=== PATIENT | male | born 1955 | race Caucasian/White ===

== ENCOUNTER 2016-10-18 04:36 | Emergency (ER) | payer OTHER ==
[~2016-10-18] VITALS: Ht 177.8 cm; Wt 102.0 kg
[~2016-10-18 04:36] MED LIST: 1-ME1LIQ PO; GLUCTAB PO
[2016-10-18 04:37] VITALS: BP 175/116; PULSE 90; RESP 16; TEMP 98.5; O2SAT 98
[2016-10-18] MEDS ORDERED: AMLO10TA2 PO (05:07)
[2016-10-18] MEDS ORDERED: OXYMETAZOLINE HCL 0.05% 15 ML NASAL SPRAY NASAL ONE (05:15)
--- NOTE | 2016-10-18 05:17 | PD ---
HPI . Nosebleed Chief Complaint: Nosebleed Time Seen by Provider: 05:12 Travel History International Travel<30 days: No Contact w/Intl Traveler<30days: No Traveled to known affect area: No History of Present Illness HPI Patient presents with a nosebleed that started about 3:15 AM. He states that he 's been treating it with pressure and with tissue in his nose. 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) High Cholesterol: Yes Chest Pain: No Diabetes: Yes (diet controlled) Patient Takes Glucophage: No Diminished Hearing: No Gastrointestinal Disorders: No Glaucoma: No Hepatitis: No Hiatal Hernia: No Hypertension: Yes Integumentary: No Thyroid Disease: No Past Surgical History Tonsillectomy: Yes Other Surgery: Yes (TUMOR FROM RIGHT LEG REMOVED, BILAT INGUINAL HERNIA REPAIR) Social History Alcohol Use: No Tobacco Use: No (never) Substance Use: No Allergies-Medications (Allergen,Severity, Reaction): Coded Allergies: No Known Allergies (Unverified , 10/18/16) Reported Meds & Prescriptions Reported Meds & Active Scripts Active Reported Amlodipine (Amlodipine Besylate) 10 Mg Tab 10 Mg PO DAILY Review of Systems Except as stated in HPI: all other systems reviewed are Neg General / Constitutional: No: Fever, Chills HENT: Positive: Nosebleed Physical Exam Narrative GENERAL: Patient is awake and alert. He is holding gauze on his nose. SKIN: Warm and dry. HEAD: Atraumatic. Normocephalic. EYES: Pupils equal and round. ENT: No nasal bleeding or discharge. Mucous membranes pink and moist. He is bleeding from the left nare but the bleeding is not brisk. NECK: Trachea midline. CARDIOVASCULAR: Regular rate and rhythm. RESPIRATORY: No accessory muscle use. MUSCULOSKELETAL: No obvious deformities. No edema. NEUROLOGICAL: Awake and alert. No obvious cranial nerve deficits. Motor grossly within normal limits. Normal speech. PSYCHIATRIC: Appropriate mood and affect; insight and judgment normal. Data Data Last Documented VS Vital Signs Date Time Temp Pulse Resp B/P Pulse Ox O2 Delivery O2 Flow Rate FiO2 10/18/16 04:37 98.5 90 16 175/116 98 Orders Oxymetazoline 0.05% Ashkan Hamlin (Afrin 0.0 (2/19/17 05:15) [facility] Medical Decision Making Medical Screen Exam Complete: Yes Emergency Medical Condition: Yes Differential Diagnosis Differential diagnosis includes but is not limited to epistaxis due to an upper respiratory infection, coagulopathy, local trauma, nasal fracture Narrative Course Patient presents with epistaxis. The epistaxis has been controlled with Afrin. Diagnosis Primary Impression: Epistaxis Patient Instructions: Epistaxis (DC), General Instructions Disposition: 01 DISCHARGE HOME Condition: Stable Francesca Sanches MD Oct 18, 2016 05:17
== END 2016-10-18 06:27 | disposition home or self-care (01) ==
LOC: NEPC 04:36
DX: R04.0 Epistaxis (principal); E78.00 Pure hypercholesterolemia, unspecified; E11.9 Type 2 diabetes mellitus without complications; I10 Essential (primary) hypertension
CPT/HCPCS: 99283

== ENCOUNTER 2018-07-28 10:24 | Inpatient (IN) ==
[2018-07-28] MEDS ORDERED: Heparin 10,000 UNITS/10 ML Vial (for IV use) IV.PUSH STA (10:56)
[2018-07-28] MEDS ORDERED: Sod Chloride 0.9% Inj 1,000 ML IV.SIG SCH (11:00)
--- NOTE | 2018-07-28 11:02 | ED ---
HPI General Chief complaint: Chest Pain Stated complaint: Chest Pain Complaint Time Seen by Provider: 07/28/18 10:42 Source: patient Mode of arrival: ambulatory Limitations: no limitations History of Present Illness HPI narrative: 62yo M with PMH of ablation for irregular heart rate s/p ablation in 2013 here with c/o chest pain since 9am. Pain is across his chest, pressure like, and constant. Associated with nausea, diaphoresis. + Generalized weakness. Denies any sob, vomiting, abdominal pain, focal weakness or numbness. Denies taking any medications. 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 Does not have a primary care. Related Data Home Medications Medication Instructions Recorded Confirmed omega-3 fatty acids [Fish Oil 1,000 mg PO DAILY 07/28/18 07/28/18 Concentrate] Allergies Allergy/AdvReac Type Severity Reaction Status Date / Time No Known Allergies Allergy Verified 07/28/18 10:36 Review of Systems ROS: all other systems reviewed are negative [facility] Surgical History Surgical History H/O prior ablation treatment (Acute) Hx of hernia repair (Acute) Social History Social History Substance History: No History of Abuse Second Hand Smoke Exposure: No Smoking Status: Never smoker How Often Do You Have a Drink Containing Alcohol: Monthly or less Recent Travel in [facility] within the Last 8 Weeks: No Recent Out of Country Travel within the Last 8 Weeks: No Immunization History Tetanus Immunization: >5 Years Exam Narrative Exam Narrative: GENERAL: 62yo M in moderate distress. SKIN: Focused skin assessment warm/dry. HEAD: Atraumatic. Normocephalic. EYES: Pupils equal and round. No scleral icterus. No injection or drainage. ENT: No nasal bleeding or discharge. Mucous membranes pink and moist. NECK: Trachea midline. No JVD. CARDIOVASCULAR: Regular rate and rhythm. No murmur appreciated. RESPIRATORY: No accessory muscle use. Clear to auscultation. Breath sounds equal bilaterally. GASTROINTESTINAL: Abdomen soft, non-tender, nondistended. MUSCULOSKELETAL: No obvious deformities. No clubbing. No cyanosis. No edema. NEUROLOGICAL: Awake and alert. No obvious cranial nerve deficits. Motor grossly within normal limits. Normal speech. PSYCHIATRIC: Appropriate mood and affect; insight and judgment normal. Course Initial Documented Vital Signs Temperature 98.1 F 07/28/18 10:32 Pulse Rate 95 H 07/28/18 10:32 Respiratory Rate 22 11/29/18 10:32 Blood Pressure 159/86 H 07/28/18 10:32 Pulse Oximetry 93 L 07/28/18 10:32 Last Documented Vital Signs Temperature 98.9 F 07/29/18 03:00 Pulse Rate 80 07/29/18 07:00 Respiratory Rate 18 07/29/18 03:00 Blood Pressure 133/81 07/29/18 03:00 Pulse Oximetry 94 L 07/29/18 03:00 Medical Decision Making MDM Narrative Medical decision making narrative: 62yo M with chest pain since 9am associated with diaphoresis and nausea. EKG showed anterior STEMI with ST elevation in V2- V4. Pt has [facility] so discussed with Dr. 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 Aspirin, sublingual nitroglycerin and heparin bolus ordered. Medical Screen Exam Complete: Yes Emergency Medical Condition: Yes Differential Diagnosis Differential Diagnosis: STEMI Lab Data Result diagrams: 07/29/18 04:53 07/29/18 04:53 Lab Results 07/28/18 07/28/18 07/28/18 Range/Units 10:50 10:50 10:50 WBC 10.8 (4.0-11.0) th/mm3 RBC 5.27 (4.50-5.90) mil/mm3 Hgb 17.5 H (13.0-17.0) gm/dL POC Hgb (Calc) 17.3 H (13.0-17.0) g/dL Hct 50.6 (39.0-51.0) % POC Hct 51.0 (39-51.0) % MCV 96.0 (80.0-100.0) fL MCH 33.3 (27.0-34.0) pg MCHC 34.7 (32.0-36.0) % RDW 13.2 (11.6-17.2) % Plt Count 270 (150-450) th/mm3 MPV 8.6 (7.0-11.0) fL Neut % (Auto) 75.8 H (16.0-70.0) % Lymph % (Auto) 16.6 (9.0-44.0) % Stanley % (Auto) 6.0 (0.0-8.0) % Eos % (Auto) 1.3 (0.0-4.0) % Baso % (Auto) 0.3 (0.0-2.0) % Neut # (Auto) 8.2 H (1.8-7.7) th/mm3 Lymph # (Auto) 1.8 (1.0-4.8) th/mm3 Stanley # (Auto) 0.6 (0.0-0.9) th/mm3 Eos # (Auto) 0.1 (0.0-0.4) th/mm3 Baso # (Auto) 0.0 (0.0-0.2) th/mm3 WBC Differential . Differential Comment Auto diff final PT 10.6 (9.8-11.6) sec INR 1.0 Ratio APTT 28.6 (23.4-31.7) sec POC Sodium 140 (137-144) mmol/L Sodium (136-145) meq/L POC Potassium 3.6 (3.6-5.0) mmol/L Potassium (3.5-5.1) meq/L POC Chloride 102 (102-111) mmol/L Chloride (98-107) meq/L Carbon Dioxide (21.0-32.0) meq/L Anion Gap (5-15) meq/L POC BUN 16 (5-21) mg/dL BUN (7-18) mg/dL Creatinine (0.60-1.30) mg/dL POC Creatinine 0.9 (0.6-1.3) mg/dL Estimated GFR (>89) mL/min POC Glucose 209 H (68-110) mg/dL Random Glucose (74-106) mg/dL Calcium 8.5 (8.5-10.1) mg/dL Magnesium 2.1 (1.5-2.5) mg/dL Total Creatine Kinase 76 (39-308) U/L CK-MB (CK-2) (0.5-3.6) ng/mL CK-MB (CK-2) % (0.0-4.0) % Troponin I 0.06 H (0.02-0.05) ng/mL B-Natriuretic Peptide (0-100) pg/mL Triglycerides (42-150) mg/dL Cholesterol (120-200) mg/dL LDL Cholesterol, Calc (0-99) mg/dL HDL Cholesterol (40.0-60.0) mg/dL Cholesterol/HDL Ratio Ratio 07/28/18 07/29/18 07/29/18 Range/Units 10:50 04:53 04:53 WBC 15.7 H (4.0-11.0) th/mm3 RBC 5.42 (4.50-5.90) mil/mm3 Hgb 17.9 H (13.0-17.0) gm/dL POC Hgb (Calc) (13.0-17.0) g/dL Hct 50.5 (39.0-51.0) % POC Hct (39-51.0) % MCV 93.2 (80.0-100.0) fL MCH 33.0 (27.0-34.0) pg MCHC 35.4 (32.0-36.0) % RDW 13.4 (11.6-17.2) % Plt Count 251 (150-450) th/mm3 MPV 8.7 (7.0-11.0) fL Neut % (Auto) 84.8 H (16.0-70.0) % Lymph % (Auto) 7.1 L (9.0-44.0) % Stanley % (Auto) 7.9 (0.0-8.0) % Eos % (Auto) 0.1 (0.0-4.0) % Baso % (Auto) 0.1 (0.0-2.0) % Neut # (Auto) 13.3 H (1.8-7.7) th/mm3 Lymph # (Auto) 1.1 (1.0-4.8) th/mm3 Stanley # (Auto) 1.2 H (0.0-0.9) th/mm3 Eos # (Auto) 0.0 (0.0-0.4) th/mm3 Baso # (Auto) 0.0 (0.0-0.2) th/mm3 WBC Differential . Differential Comment Auto diff final PT (9.8-11.6) sec INR Ratio APTT (23.4-31.7) sec POC Sodium (137-144) mmol/L Sodium 137 (136-145) meq/L POC Potassium (3.6-5.0) mmol/L Potassium 4.0 (3.5-5.1) meq/L POC Chloride (102-111) mmol/L Chloride 104 (98-107) meq/L Carbon Dioxide 23.9 (21.0-32.0) meq/L Anion Gap 9 (5-15) meq/L POC BUN (5-21) mg/dL BUN 16 (7-18) mg/dL Creatinine 0.99 (0.60-1.30) mg/dL POC Creatinine (0.6-1.3) mg/dL Estimated GFR 77 L (>89) mL/min POC Glucose (68-110) mg/dL Random Glucose 132 H (74-106) mg/dL Calcium 8.4 L (8.5-10.1) mg/dL Magnesium (1.5-2.5) mg/dL Total Creatine Kinase 3102 H (39-308) U/L CK-MB (CK-2) 240.3 H (0.5-3.6) ng/mL CK-MB (CK-2) % 7.7 H* (0.0-4.0) % Troponin I (0.02-0.05) ng/mL B-Natriuretic Peptide 15 (0-100) pg/mL Triglycerides 144 (42-150) mg/dL Cholesterol 214 H (120-200) mg/dL LDL Cholesterol, Calc 141 H (0-99) mg/dL HDL Cholesterol 44.1 (40.0-60.0) mg/dL Cholesterol/HDL Ratio 4.85 Ratio Imaging Data Radiologist's impression: Chest X-Ray 07/28/18 10:57 CONCLUSION: No acute disease ECG Data EKG Prior to Arrival: No Attestation: I personally reviewed and interpreted this ECG as follows: Prior ECG tracings: not available for review Interpretation: ST segment elevation in V2-V4. RBBB. No prior to compare. Discharge Plan Discharge Disposition Patient Disposition: 30 Still Patient Discharge Details Diagnosis: ST elevation (STEMI) myocardial infarction Physicians Team ED Provider: June Grimes Primary Care Provider: Primary Care Amalia Galvin Attending Provider: Joseph Scott Other Providers: Bebeto Lopez Status ED Status: Left Department Discharge Information Discharge Date/Time: 07/28/18 11:05
--- NOTE | 2018-07-28 11:15 | XR ---
EXAM DATE: 07/28/2018 11:12 AM EST AGE/SEX: 62 years / Male INDICATIONS: Chest pains with pressure. CLINICAL DATA: This is the patient's initial encounter. Patient reports that signs and symptoms have been present for 1 day and indicates a pain score of 10/10. MEDICAL/SURGICAL HISTORY: None. None. COMPARISON: [facility], CHEST SINGLE AP, 03/07/2014. . FINDINGS: A single AP view of the chest demonstrates the lungs to be symmetrically aerated without evidence of mass, infiltrate or effusion. The cardiomediastinal contours are unremarkable. Osseous structures a re intact. CONCLUSION: No acute disease Electronically signed by: Marky Han MD 07/28/2018 11:13 AM EST
[2018-07-28] MEDS ORDERED: Heparin/NS PF Inj 1,000 ML ONE (11:16)
[2018-07-28] MEDS ORDERED: Lidocaine PF 1% Inj 30 ML Vial ONE ×2 (11:16→11:26)
[2018-07-28] MEDS ORDERED: fentaNYL Citrate Inj 100 MCG/2 ML Ampul ONE (11:17)
[2018-07-28] MEDS ORDERED: Heparin 10,000 UNITS/10 ML Vial (for IV use) ONE (11:17)
[2018-07-28 11:18] LABS: Baso % (Auto) 0.3 % (0.0-2.0); Eos # (Auto) 0.1 th/mm3 (0.0-0.4); Eos % (Auto) 1.3 % (0.0-4.0); Hematocrit 50.6 % (39.0-51.0); Hemoglobin 17.5 gm/dL (13.0-17.0); Lymph # (Auto) 1.8 th/mm3 (1.0-4.8); Lymph % (Auto) 16.6 % (9.0-44.0); Mean Corpuscular HGB Conc 34.7 % (32.0-36.0); Mean Corpuscular Hemoglobin 33.3 pg (27.0-34.0); Mean Platelet Volume 8.6 fL (7.0-11.0); Mono # (Auto) 0.6 th/mm3 (0.0-0.9); Neut # (Auto) 8.2 th/mm3 (1.8-7.7); Neut % (Auto) 75.8 % (16.0-70.0); Platelet Count 270 th/mm3 (150-450); Red Blood Count 5.27 mil/mm3 (4.50-5.90); Red Cell Distribution Width 13.2 % (11.6-17.2); White Blood Count 10.8 th/mm3 (4.0-11.0)
[2018-07-28] MEDS ORDERED: Cangrelor Inj 50,000 MCG Vial ONE (11:22)
[2018-07-28] MEDS ORDERED: Lidocaine 2% 100 MG/5 ML Syringe ONE (11:25)
[2018-07-28] MEDS ORDERED: Iohexol 350 MG/ML 100 ML Vial (for Cath Lab) IVCONTRAST ONE (11:26)
[2018-07-28] MEDS ORDERED: Iohexol 350 MG/ML 50 ML Vial (for Cath Lab) IVCONTRAST ONE (11:26)
[2018-07-28 11:28] LABS: Activated Partial Thrombo Time 28.6 sec (23.4-31.7); Prothrombin Time 10.6 sec (9.8-11.6)
[2018-07-28 11:30] LABS: Calcium 8.5 mg/dL (8.5-10.1)
[2018-07-28 11:36] LABS: Magnesium 2.1 mg/dL (1.5-2.5)
[2018-07-28 11:39] LABS: Troponin I 0.06 ng/mL (0.02-0.05)
[2018-07-28] MEDS ORDERED: Acetaminophen 325 MG Tablet PO PRN (12:15)
[2018-07-28] MEDS ORDERED: oxyCODONE/Acetaminophen 10/325 Tablet PO PRN (12:15)
[2018-07-28] MEDS ORDERED: Lidocaine 2% Jelly 5 ML Syringe TOPICAL PRN (12:15)
[2018-07-28] MEDS ORDERED: Misc Info for Pharmacy OTHER STA (12:15)
[2018-07-28] MEDS ORDERED: Atropine Inj 1 MG/ML Vial IV.PUSH PRN (12:15)
[2018-07-28] MEDS ORDERED: Sodium Chlor 0.9% Inj 250 ML IV.SIG ONE (12:15)
--- NOTE | 2018-07-28 12:35 | CATHPROC ---
[employer] HIS Report Study Information Study Number Admission Scheduled Start Study Start [id number] Jul 28 2018 10:24AM 07/28/2018 Jul 28 2018 11:17AM [place] [facility] Cardiac Pacer/ICD Admit Source Facility Department Emergency department [facility] - Chancery Clerk Physician and Clinical Staff Initial Joseph Feliciano Fashion Director You Lopez RN Fashion DirectorCeferino Alcaraz RN Fashion Director You Estrada RN Recorder Mallory Osullivan,RT(R) Scrub Student, ROXANA/RT(R) Scrub Marta LiconaRT(R) Procedures Performed Procedure Location (Site) Vessel Name Coronary Angiograms LCA Left Coronary Coronary Angiograms RCA Right Coronary Drug Eluting Inflatio LAD Prox Left Coronary L Heart Cath PTCA LAD Prox Left Coronary Wire insertion Radial (right) Radial Art. Equipment Time Meteorology Instructor Description Size Mfg Part Number Used/Scraped TRANSDUCER, TRUWAVE [id number] 11:21 PERRIN STANTON * Used W/[employer] InternationalCOCK *[id number] [phone] *[id number] [phone] *[id number] *[id number] *[id number] 11:21 [employer] BLANKET,WARM AIR CCL * Used *[id number] 11:21 [employer] PACK, CCL CUSTOM * Used *[id number] 11:21 [employer] SUPPORT, ARTERIAL ADULT 50680 *[id number] Used [id number] 11:58 MEDTRONIC BALLOON, 3.0 X 12MM EUPHORA 12MM Used *[id number] 11:31 [employer] BALLOON, 3.0 X 15MM EUPHORA 15MM Used *[id number] 11:37 [employer]TR[employer]IC CATHETER, EXPORT ASPIRATON Used *[id number] 11:47 MEDTRONIC STENT, 4.0 18MM SIVA 4.0 18MM Used *[id number] 11:43 [employer]oah 30 PITA INDEFLATOR Used *[id number] 11:32 [employer]oah 30 PITA INDEFLATOR Used *[id number] BAND, RADIAL COMPRESSION TR [id number] 11:56 [employer] MEDICAL 24CM Used SHORT 24 *[id number] SHEATH, FR6 RADIAL PRELUDE 11:21 Nyxoah FR 6 [id number] Used EASE 11CM [id number] 11:21 [employer] WIRE, EXCHANGE 260CM 3MMJ 260CM Used *[id number] 11:21 NAMIC MANIFOLD, 4 PORT * Used *[id number] 11:21 NYCOMED OMNIPAQUE, 350 MG, 150ML 150ML [id number] Used WIRE, RUNTHROUGH NS FLOPPY 11:37 TER[employer] MEDICAL 180CM Used .014 180CM *[id number] WIRE, RUNTHROUGH NS FLOPPY 11:26 [employer] 180CM Used .014 180CM *[id number] Equipment Model, Serial, Lot Number and Expiration Data Description Model Number Serial Number Lot Number Expiration Date STENT, 4.0 18MM SIVA [id number] 08-11-2019 Labs Hgb (g/dl) Hct (%) 11.60-17.00 35.00-51.00 17.3 51 Glucose (mg/dl) BUN (mg/dl) Creatinine (mg/dl) BUN:Creatinine (1:x) 74.00-106.00 7.00-18.00 0.50-1.30 10.00-20.00 209 16 0.9 17.8 Na (meq/l) K (meq/l) 136.00-145.00 3.50-5.10 140 3.6 Medication Medication Total Dose (Bolus/Oral) Medication Total Dosage/Unit BRILINTA 180 mg FENTANYL 50 mcg HEPARIN 3000 units LASIX 40 mg LIDOCAINE 50 mg NTG (IC) 400 mcg VERSED 1 mg Medications (Bolus/Oral) Medication Time Given Dosage/Unit Administered By Reason 07/28/2018 11:20:36 VERSED 1 mg Ceferino Gonzales AM 1 mg VERSED given in lab by Ceferino Gonzales RN in Left Antecubital via Peripheral IV. Ordered by Joseph Basurto. 07/28/2018 11:21:46 FENTANYL 50 mcg Ceferino Gonzales AM 50 mcg FENTANYL given in lab by Ceferino Gonzales RN in Left Antecubital via Peripheral IV. Ordered by Joseph Scott. 07/28/2018 11:21:56 NTG (IC) 200 mcg Joseph Scott AM 200 mcg NTG (IC) given in lab by Joseph Scott in Right Radial via Intra-arterial. 07/28/2018 11:23:31 HEPARIN 3000 units Ceferino Gonzales AM 3000 units HEPARIN given in lab by Ceferino Gonzales RN in Left Antecubital via Peripheral IV. Ordered by Joseph Scott. 07/28/2018 11:26:15 LIDOCAINE 50 mg You Estrada AM 50 mg LIDOCAINE given in lab by You Estrada RN in Left Antecubital via Peripheral IV. Ordered by Joseph Adorno. 07/28/2018 11:36:35 LASIX 40 mg Ceferino Gonzales AM 40 mg LASIX given in lab by Ceferino Gonzales RN in Left Antecubital via Peripheral IV. Ordered by Joseph Basurto. 07/28/2018 11:52:34 NTG (IC) 200 mcg Joseph Scott AM 200 mcg NTG (IC) given in lab by Joseph Scott in Right Radial via Intra-coronary. Ordered by Joseph Scott. 07/28/2018 12:06:03 BRILINTA 180 mg Ceferino Gonzales PM 180 mg BRILINTA given in lab by Ceferino Gonzales RN via Oral. Ordered by Joseph Scott. Medication (Drip) Medication Time Given Dosage/Unit Concentration/Unit Diluent (ml) Solution 07/28/2018 11:18:33 IV Solutions 50 mL (IV) NaCl .9 AM Patient arrived on IV Solutions in Left Antecubital via Peripheral IV. Pump/Drip Flow using NaCl .9. 07/28/2018 11:33:21 KENGREAL BOLUS 17 mL AM 17 mL KENGREAL BOLUS given in lab by Ceferino Gonzales RN in Left Antecubital via Peripheral IV. Ordere d by Joseph Scott. 07/28/2018 11:35:00 KENGREAL DRIP 4.014 mcg/kg/min 50 mg 250 NaCl .9 AM 4.014 mcg/kg/min KENGREAL DRIP given in lab by Ceferino Gonzales RN in Left Antecubital via Peripheral IV. Pump/Drip Flow = 136.8 ml/hr using NaCl .9 with a concentration of 50 mg in 250 ml. Ordered by Joseph Scott. Chronological Log Time Study Chronological Log 11:00:35 Emergency Room notified that Chancery Clerk is ready. 11:15:39 Patient arrived via Bed. 11:17:40 Patient Name, D.O.B, / Armband Verified By R.N. 11:17:57 Patient has been NPO for Less than 6Hrs. 11:18:16 Disposable Defibrillator Pads Placed On Patient. 11:18:17 Soraya Prominences Protected 11:18:18 A # 20 IV was noted in the Antecubital (left). Grade = 0 11:18:33 Patient arrived on IV Solutions in Left Antecubital via Peripheral IV. Pump/Drip Flow usi ng NaCl .9. Vitals capture started with the following parameters, Patient=Adult, Interval=5 min, Initial Avbmaluc=091 mmHg, 11:19:12 Deflation Rate=5 mmHg, Cuff placed on Left Arm 11:19:55 HR=46 bpm, UIIF=483/73 mmhg, SpO2=89.0 %, Resp=13 B/min 11:20:35 Case Start 11:20:36 1 mg VERSED given in lab by Ceferino Gonzales, SAGAR in Left Antecubital via Peripheral IV. Ord ered by Joseph Scott. 11:20:40 Access site was Right Radial Artery . 11:21:02 Pressure channel 1 zeroed. 11::46 50 mcg FENTANYL given in lab by Ceferino Gonzales, SAGAR in Left Antecubital via Peripheral IV. Ordered by Joseph Scott. A SHEATH, FR6 RADIAL PRELUDE EASE 11CM FR 6 was advanced into the Radial (right) using the Pe rcutaneous 11:21:52 technique. 11:21:56 200 mcg NTG (IC) given in lab by Joseph Scott in Right Radial via Intra-arterial. A JR 5.0 INFINITI CATHETER FR 6 was advanced over a wire. OMNIPAQUE, 350 MG, 150ML 150ML was used for 11:22:22 injections. 11:23:31 3000 units HEPARIN given in lab by Ceferino Gonzales, SAGAR in Left Antecubital via Peripheral IV. Ordered by Joseph Scott. 11:24:05 The RCA was injected and visualized at various angles. OMNIPAQUE, 350 MG, 150ML 150ML us ed. 11:24:44 Catheter was removed 11:24:52 HR=63 bpm, AIFB=867/71 mmhg, SpO2=88.0 %, Resp=14 B/min Jaylin CORONADO 1.5 GUIDE CATHETER FR 6 was advanced over a wire. OMNIPAQUE, 350 MG, 150ML 150ML was use d for 11:25:09 injections. 11::15 50 mg LIDOCAINE given in lab by You Estrada, RN in Left Antecubital via Peripheral IV. O rdered by Joseph Scott. 11::51 Catheter was removed A AL 3 INFINITI CATHETER FR 6 was advanced over a wire. OMNIPAQUE, 350 MG, 150ML 150ML was us ed for 11::01 injections. 11::36 Reference ECG taken 11::42 A WIRE, EXCHANGE 260CM 3MMJ 260CM was inserted via Radial (right). 11::48 The LCA was injected and visualized at various angles. OMNIPAQUE, 350 MG, 150ML 150ML used . Recorded Pressure: Ao, HR=82, Condition=Condition 1 11:30:15 (Aorta) Ao 117/81/102 11:30:24 HR=77 bpm, GDCT=455/82 mmhg, SpO2=88.0 %, Resp=24 B/min 11:31:02 A WIRE, RUNTHROUGH NS FLOPPY .014 180CM 180CM was inserted via Radial (right). Recorded Pressure: Ao, HR=91, Condition=Condition 1 11:31:17 (Aorta) Ao 125/86/107 A BALLOON, 3.0 X 15MM EUPHORA 15MM was inserted over WIRE, RUNTHROUGH NS FLOPPY .014 180CM 180C M via 11:31:33 the Radial (right). A BALLOON, 3.0 X 15MM EUPHORA 15MM over a WIRE, RUNTHROUGH NS FLOPPY .014 180CM 180CM in the LA D 11:32:03 Prox was inflated using a 30 PITA INDEFLATOR at 8 pita for 15 sec. 17 mL KENGREAL BOLUS given in lab by Ceferino Gonzales, SAGAR in Left Antecubital via Peripheral IV. Ordered by Tyler 11:33:21 Joseph. A BALLOON, 3.0 X 15MM EUPHORA 15MM over a WIRE, RUNTHROUGH NS FLOPPY .014 180CM 180CM in the LA D 11:33:37 Prox was inflated using a 30 PITA INDEFLATOR at 8 pita for 10 sec. A BALLOON, 3.0 X 15MM EUPHORA 15MM over a WIRE, RUNTHROUGH NS FLOPPY .014 180CM 180CM in the LA D 11:33:44 Prox was inflated using a 30 PITA INDEFLATOR at 12 pita for 13 sec. 11:34:50 HR=95 bpm, BVCS=398/68 mmhg, SpO2=91.0 %, Resp=19 B/min 4.014 mcg/kg/min KENGREAL DRIP given in lab by Ceferino Gonzales, SAGAR in Left Antecubital via Perip heral IV. Pump/Drip 11:35:00 Flow = 136.8 ml/hr using NaCl .9 with a concentration of 50 mg in 250 ml. Ordered by eDll Scott. 11:35:51 Balloon Removed. 11:35:58 A WIRE, RUNTHROUGH NS FLOPPY .014 180CM 180CM was inserted via Radial (right). 11:36:35 40 mg LASIX given in lab by Ceferino Gonzales RN in Left Antecubital via Peripheral IV. Order ed by Joseph Scott. 11:38:07 Activated Clotting Time Drawn 11:40:16 HR=75 bpm, KUFK=429/92 mmhg, SpO2=96.0 %, Resp=23 B/min 11:40:29 Wires removed After removing the current catheter a AL 3 GUIDE CATHETER FR 6 was advanced over a WIRE, EXCHAN GE 260CM 11:41:25 3MMJ 260CM. 11:43:14 A WIRE, RUNTHROUGH NS FLOPPY .014 180CM 180CM was inserted via Radial (right). 11:44:01 ACT (Normal Range 90-180) = 339 11:44:20 A WIRE, RUNTHROUGH NS FLOPPY .014 180CM 180CM was inserted via Radial (right). 11:44:53 HR=68 bpm, LLHS=203/82 mmhg, SpO2=97.0 %, Resp=25 B/min A STENT, 4.0 18MM SIVA 4.0 18MM was advanced through a AL 3 INFINITI CATHETER FR 6 over a WIRE, 11:48:10 RUNTHROUGH NS FLOPPY .014 180CM 180CM. A STENT, 4.0 18MM SIVA 4.0 18MM was deployed using a 30 PITA INDEFLATOR at 10 atmospheres for 10 seconds in 11:48:46 the LAD Prox. 11:49:52 HR=75 bpm, BJMK=363/72 mmhg, SpO2=97.0 %, Resp=21 B/min 11:50:10 Delivery device removed 11:52:34 200 mcg NTG (IC) given in lab by Joseph Scott in Right Radial via Intra-coronary. Ordered by Joseph Scott. A BALLOON, 3.0 X 15MM EUPHORA 15MM was inserted over WIRE, RUNTHROUGH NS FLOPPY .014 180CM 180C M via 11:54:32 the Radial (right). 11:54:44 HR=81 bpm, EUYK=910/88 mmhg, SpO2=99.0 %, Resp=12 B/min 11:56:44 Balloon Removed. A BALLOON, 3.0 X 12MM EUPHORA 12MM was inserted over WIRE, RUNTHROUGH NS FLOPPY .014 180CM 180C M via 11:58:01 the Radial (right). 11:59:20 Balloon Removed. 11:59:26 Wires removed 11:59:34 A WIRE, EXCHANGE 260CM 3MMJ 260CM was inserted via Radial (right). 11:59:48 HR=83 bpm, FLJF=914/108 mmhg, SpO2=97.0 %, Resp=22 B/min 11:59:52 Catheter was removed 11:59:57 Case End (Physician broke scrub) 12:04:47 Vitals capture stopped. 12:06:03 180 mg BRILINTA given in lab by Ceferino Gonzales RN via Oral. Ordered by Joseph Scott. Radial Compression Device Used. 15 mLs of air placed in BAND, RADIAL COMPRESSION TR SHORT 24 2 4CM. Affected 12:07:07 hand 97 % O2 saturation. 12:09:55 No case complications noted. 12:09:57 Cine recording checked. 12:10:06 Bedside Report will be given. 12:10:06 Implantable Device card placed in patient's chart. 12:10:09 A Left Heart Cath was performed. 12:15:10 [facility] - Cont[facility] Media Used In Study Contrast Total Opened (mL) Total Used (mL) Total Wasted (mL) Omnipaque 350 150 140 10 End Study - Maximum Contrast Load Max Contrast Load (mL) 631.3 End Study - Radiation Exposure Fluoro Time (minutes) 11.9 End Study - Patient Disposition Complications Transferred To Interventional Outcome No Telemetry Bed successful
[2018-07-28] MEDS ORDERED: Cangrelor Inj 50,000 MCG in Sodium Chlor 0.9% Inj 250 ML IV.SIG ONE (14:00)
--- NOTE | 2018-07-28 16:18 | ECHRPT ---
Indication: CHEST PAIN CONCLUSIONS Technically very difficult study making assessment of left ventricular function and wall motion subo ptimal. Normal left ventricular size. Wall thickness is normal. Left ventricular systolic function may be m ildly reduced with an estimated ejection fraction in the range of 40-45%. Possible small area of distal se ptal and apical hypokinesis. No definite significant valvular abnormalities. BP: / HR: Rhythm: Sinus, PVCs MEASUREMENTS (Male / Female) Normal Values Technical Quality:Poor 2D ECHO LV Diastolic Diameter PLAX 4.6 cm 4.2 - 5.9 / 3.9 - 5.3 cm LV Systolic Diameter PLAX 3.6 cm IVS Diastolic Thickness 1.1 cm 0.6 - 1.0 / 0.6 - 0.9 cm LVPW Diastolic Thickness 1.1 cm 0.6 - 1.0 / 0.6 - 0.9 cm LV Relative Wall Thickness 0.5 LVOT Diameter 2.0 cm Aortic Root Diameter 3.9 cm LV Ejection Fraction MOD 4C 45.3 % LV Ejection Fraction 4C AL 45.9 % M-MODE AV Cusp Separation MM 1.8 cm DOPPLER AV Peak Velocity 99.1 cm/s AV Peak Gradient 3.9 mmHg LVOT Peak Velocity 84.4 cm/s LVOT Peak Gradient 2.8 mmHg AV Area Cont Eq pk 2.7 cm Mitral E Point Velocity 46.4 cm/s Mitral A Point Velocity 59.7 cm/s Mitral E to A Ratio 0.8 TR Peak Velocity 106.0 cm/s TR Peak Gradient 4.5 mmHg Right Atrial Pressure 10.0 mmHg Pulmonary Artery Systolic Pressu 14.5 mmHg Right Ventricular Systolic Press 14.5 mmHg PV Peak Velocity 62.2 cm/s PV Peak Gradient 1.5 mmHg FINDINGS LEFT VENTRICLE Technically very difficult study making assessment of left ventricular function and wall motion subo ptimal. Normal left ventricular size. Wall thickness is normal. Left ventricular systolic function may be m ildly reduced with an estimated ejection fraction in the range of 40-45%. Possible small area of distal se ptal and apical hypokinesis. RIGHT VENTRICLE The right ventricle was not well visualized. Normal right ventricular size and systolic function. LEFT ATRIUM The left atrial size is normal. RIGHT ATRIUM The right atrium is not well visualized. ATRIAL SEPTUM Normal atrial septal thickness. AORTA The aortic root and proximal ascending aorta are normal in size on limited imaging. MITRAL VALVE Structurally normal mitral valve. No mitral valve stenosis or regurgitation. AORTIC VALVE Trileaflet aortic valve. No aortic valve stenosis or regurgitation. TRICUSPID VALVE The estimated pulmonary arterial pressure is 15 mmHg. There is trace tricuspid valve regurgitation. PULMONARY VALVE No pulmonary valve regurgitation or stenosis. VESSELS The inferior vena cava was not well visualized. PERICARDIUM There is a trivial pericardial effusion present. Kalen Isidro MD (Electronically Signed) Final Date:28 July 2018 16:17
[2018-07-28] MEDS ORDERED: Nitroglycerin Drip Premix 50 MG/250 ML BOTTLE IV.CONT PRN (17:05)
[2018-07-28] MEDS ORDERED: Metoprolol Tartrate 25 MG Tablet PO SCH (21:00)
[2018-07-29] MEDS ORDERED: LORazepam 0.5 MG Tablet PO ONE (02:00)
[2018-07-29] MEDS ORDERED: Metoprolol Inj 5 MG/5 ML Vial IV.PUSH ONE (02:00)
[2018-07-29 05:34] LABS: Baso % (Auto) 0.1 % (0.0-2.0); Eos % (Auto) 0.1 % (0.0-4.0); Hematocrit 50.5 % (39.0-51.0); Hemoglobin 17.9 gm/dL (13.0-17.0); Lymph # (Auto) 1.1 th/mm3 (1.0-4.8); Lymph % (Auto) 7.1 % (9.0-44.0); Mean Corpuscular HGB Conc 35.4 % (32.0-36.0); Mean Corpuscular Volume 93.2 fL (80.0-100.0); Mean Platelet Volume 8.7 fL (7.0-11.0); Mono # (Auto) 1.2 th/mm3 (0.0-0.9); Mono % (Auto) 7.9 % (0.0-8.0); Neut # (Auto) 13.3 th/mm3 (1.8-7.7); Neut % (Auto) 84.8 % (16.0-70.0); Platelet Count 251 th/mm3 (150-450); Red Blood Count 5.42 mil/mm3 (4.50-5.90); Red Cell Distribution Width 13.4 % (11.6-17.2); White Blood Count 15.7 th/mm3 (4.0-11.0)
[2018-07-29 06:00] LABS: Calcium 8.4 mg/dL (8.5-10.1); Carbon Dioxide 23.9 meq/L (21.0-32.0)
[2018-07-29 06:11] LABS: Chol/HDL Ratio 4.85 Ratio; HDL Cholesterol 44.1 mg/dL (40.0-60.0)
[2018-07-29 06:28] LABS: Creatine Kinase MB 240.3 ng/mL (0.5-3.6)
[2018-07-29 06:34] LABS: CKMB Percent 7.7 % (0.0-4.0)
--- NOTE | 2018-07-29 08:16 | P.PNCA ---
Subjective Interval history: patient developed "2/10" chest pain overnight, with occasional SOB. currently resting comfortably. telemetry shows several episodes of VT since PCI yesterday; longest run appears to be ~ 20 beats. Medications and Allergies Active Medications: Active Medications Acetaminophen (Tylenol) 325 mg PO Q4H PRN PRN Reason: PAIN SCALE 1 TO 2 Aspirin (Aspirin Chew) 81 mg PO DAILY [facility] Atorvastatin Calcium (Lipitor) 40 mg PO HS [facility] Last Admin: 07/28/18 21:27 Dose: 40 mg Atropine Sulfate (Atropine Inj) 0.5 mg IV.PUSH UNSCH PRN PRN Reason: VAGAL REPONSE Furosemide (Lasix) 40 mg PO DAILY [facility] Sodium Chloride (Ns Inj) 1,000 mls @ 30 mls/hr IV.SIG .Q24H [facility] Stop: 07/29/18 10:59 Last Admin: 07/28/18 11:28 Dose: 30 mls/hr Nitroglycerin/Dextrose (Nitroglycerin Drip Premix) 50 mg in 250 mls @ 1.5 mls/ hr IV.CONT TITRATE PRN; Protocol PRN Reason: Per Protocol Last Titration: 07/29/18 00:30 Dose: 30 mcg/min, 9 mls/hr Lidocaine HCl (Xylocaine 2% Jelly) 5 ml TOPICAL PRN PRN PRN Reason: For male lamar catheter insert Lisinopril (Prinivil) 5 mg PO DAILY [facility] Metoclopramide HCl (Reglan Inj) 10 mg IV.PUSH Q4H PRN; Protocol PRN Reason: NAUSEA Metoprolol Tartrate (Lopressor) 50 mg PO BID [facility] Oxycodone/Acetaminophen (Percocet 10/325 Mg) 1 tab PO Q4H PRN PRN Reason: PAIN SCALE 6 TO 10 Oxycodone/Acetaminophen (Percocet 5/325 Mg) 1 tab PO Q4H PRN PRN Reason: PAIN SCALE 3 TO 5 Sodium Chloride (Ns Flush) 2 ml IV.FLUSH BID [facility] Last Admin: 07/28/18 21:27 Dose: 2 ml Sodium Chloride (Ns Flush) 2 ml IV.FLUSH PRN PRN PRN Reason: FLUSH AFTER USING IV ACCESS Ticagrelor (Brilinta) 90 mg PO BID [facility] Last Admin: 07/28/18 21:27 Dose: 90 mg Allergies Allergy/AdvReac Type Severity Reaction Status Date / Time No Known Allergies Allergy Verified 07/28/18 10:36 Home Medications Medication Instructions Recorded Confirmed Type omega-3 fatty acids [Fish Oil 1,000 mg PO DAILY 07/28/18 07/28/18 History Concentrate] Physical Exam Vital signs: Vital Signs 07/28/18 10:32 07/28/18 10:55 07/28/18 10:57 Temperature 98.1 F Pulse Rate 95 H 83 Respiratory Rate 22 Blood Pressure 159/86 H Pulse Oximetry 93 L 98 95 07/28/18 11:05 07/28/18 14:00 07/28/18 15:00 Temperature 97.7 F 97.7 F Pulse Rate 106 H 74 80 Respiratory Rate 18 16 Blood Pressure 159/85 H 128/79 Pulse Oximetry 98 96 07/28/18 16:00 07/28/18 17:00 07/28/18 18:00 Temperature Pulse Rate 74 80 88 Respiratory Rate Blood Pressure Pulse Oximetry 07/28/18 19:00 07/28/18 20:00 07/28/18 21:00 Temperature 98.2 F Pulse Rate 89 80 86 Respiratory Rate 18 Blood Pressure 149/76 H Pulse Oximetry 95 98 07/28/18 22:00 07/28/18 23:00 07/29/18 00:00 Temperature 99.7 F H Pulse Rate 84 85 88 Respiratory Rate 22 Blood Pressure 155/91 H Pulse Oximetry 94 L 07/29/18 00:48 07/29/18 01:00 07/29/18 02:00 Temperature Pulse Rate 80 76 Respiratory Rate Blood Pressure Pulse Oximetry 96 07/29/18 03:00 07/29/18 04:00 07/29/18 05:00 Temperature 98.9 F Pulse Rate 69 74 71 Respiratory Rate 18 Blood Pressure 133/81 Pulse Oximetry 94 L 07/29/18 06:00 07/29/18 07:00 Temperature Pulse Rate 99 H 80 Respiratory Rate Blood Pressure Pulse Oximetry Intake & Output 07/28/18 07/29/18 07/29/18 18:59 06:59 18:59 Intake Total 490 / 490 480 / 480 Output Total 750 / 750 Balance 490 / 490 -270 / -270 Weight 95.254 kg 113.5 kg Intake: IV 250 / 250 Kengreal Inj 50,000 MCG In NS 250 / 250 Inj 250 ML @ As Directed IV.SIG ONCE ONE Rx#:[id number] Oral 240 / 240 480 / 480 Output: Urine 750 / 750 Other: # Voids 5 Results 07/29/18 04:53 07/29/18 04:53 Cardiac Enzymes 07/28/18 07/28/18 07/29/18 Range/Units 10:50 10:50 04:53 CK-MB (CK-2) 240.3 H (0.5-3.6) ng/mL Troponin I 0.06 H (0.02-0.05) ng/mL B-Natriuretic Peptide 15 (0-100) pg/mL Coagulation 07/28/18 07/28/18 Range/Units 10:50 10:50 PT 10.6 (9.8-11.6) sec APTT 28.6 (23.4-31.7) sec B-Natriuretic Peptide 15 (0-100) pg/mL Lipids 07/29/18 Range/Units 04:53 Triglycerides 144 (42-150) mg/dL Cholesterol 214 H (120-200) mg/dL HDL Cholesterol 44.1 (40.0-60.0) mg/dL Cholesterol/HDL Ratio 4.85 Ratio CBC 07/28/18 07/29/18 Range/Units 10:50 04:53 WBC 10.8 15.7 H (4.0-11.0) th/mm3 RBC 5.27 5.42 (4.50-5.90) mil/mm3 Hgb 17.5 H 17.9 H (13.0-17.0) gm/dL Hct 50.6 50.5 (39.0-51.0) % Plt Count 270 251 (150-450) th/mm3 Neut # (Auto) 8.2 H 13.3 H (1.8-7.7) th/mm3 Lymph # (Auto) 1.8 1.1 (1.0-4.8) th/mm3 [place] # (Auto) 0.6 1.2 H (0.0-0.9) th/mm3 Eos # (Auto) 0.1 0.0 (0.0-0.4) th/mm3 Baso # (Auto) 0.0 0.0 (0.0-0.2) th/mm3 Comprehensive Metabolic Panel 07/28/18 07/29/18 Range/Units 10:50 04:53 Sodium 137 (136-145) meq/L Potassium 4.0 (3.5-5.1) meq/L Chloride 104 (98-107) meq/L Carbon Dioxide 23.9 (21.0-32.0) meq/L BUN 16 (7-18) mg/dL Creatinine 0.99 (0.60-1.30) mg/dL Calcium 8.5 8.4 L (8.5-10.1) mg/dL Intake and Output 07/28/18 07/29/18 07/29/18 22:59 06:59 14:59 Intake Total 490 / 490 480 / 480 Output Total 750 / 750 Balance 490 / 490 -270 / -270 Intake: IV 250 / 250 K[place]real Inj 50,000 MCG In NS 250 / 250 Inj 250 ML @ As Directed IV.SIG ONCE ONE Rx#:[id number] Oral 240 / 240 480 / 480 Output: Urine 750 / 750 Other: # Voids 5 Weight 113.5 kg - Imaging and Cardiology Imaging: Impressions Chest X-Ray 07/28/18 10:57 CONCLUSION: No acute disease Assessment and Plan - Assessment (1) ST elevation (STEMI) myocardial infarction Code(s): I21.3 - ST elevation (STEMI) myocardial infarction of unspecified site Status: Acute - Plan 62 yo obese M with prior ablation in 2013 for SVT and HLD presented yesterday with acute chest pain. STEMI alert with emergent catheterization. STEMI- PCI ORA LAD (cath report unavailable currently). 2/10 chest pain overnight VT episodes on telemetry with occasional PVCs will repeat EKG this morning echo EF 40-45% cont Brilinta, asa 81mg, atorvastatin 40mg, metoprolol 50mg BID, lisinopril 5mg
[2018-07-29] MEDS: Lisinopril 5 MG Tablet PO SCH (09:05)
[2018-07-29] MEDS: Furosemide 40 MG Tablet PO SCH (09:06)
[2018-07-29] MEDS: Metoprolol Tartrate 50 MG Tablet PO SCH ×2 (09:06→20:36)
[2018-07-29] MEDS: Magnesium Oxide 400 MG Tablet PO SCH ×2 (11:50→20:36)
[2018-07-29] MEDS: Isosorbide Mononitrate 30 MG ER 24HR Tablet (Imdur) PO SCH (11:50)
--- NOTE | 2018-07-29 13:41 | P.CONIM ---
History of Present Illness Consult date: 07/29/18 Requesting Physician: Joseph Scott Reason for Consult: Medical Management Primary Care Provider: Dr. Eric Rosales History of Present Illness: Mr. Hinkle is a pleasant 62 y/o male with hx of ablation for SVT in 2013 and hyperlipidemia. Pt presented [place] the [place] [facility] [place] with complaints of chest pain that began around 9am that morning. The pain was located across his chest, described as a pressure like sensation that was constant. He did report associated nausea, diaphoresis, and generalized weakness. STEMI alert was called in the emergency department and pt underwent emergent catheterization on 07/28/18 and had PCI with ORA in the LAD (cath report unavailable currently). [facility] Hospitalist team was consulted to help with medical management. Overnight pt had noted episodes of runs of VT on telemetry with the longest run being about 20 beats. He reported some chest discomfort overnight. Denies any SOB, palpitations, dizziness, nausea/vomiting, or headache. Past Medical Hx: Hx of SVT Hyperlipidemia Past Surgical Hx: Cardiac ablation in 2013 Hernia repair Family Hx: Noncontributory Social Hx: Denies any alcohol, tobacco or illicit drug use [facility] Surgical History Surgical History H/O prior ablation treatment (Acute) Hx of hernia repair (Acute) Social History Social History Substance History: No History of Abuse Second Hand Smoke Exposure: No Smoking Status: Never smoker How Often Do You Have a Drink Containing Alcohol: Monthly or less Recent Travel in [facility] within the Last 8 Weeks: No Recent Out of Country Travel within the Last 8 Weeks: No Immunization History Tetanus Immunization: >5 Years Medications and Allergies Allergies Allergy/AdvReac Type Severity Reaction Status Date / Time No Known Allergies Allergy Verified 07/28/18 10:36 Home Medications Medication Instructions Recorded Confirmed Type omega-3 fatty acids [Fish Oil 1,000 mg PO DAILY 07/28/18 07/28/18 History Concentrate] Active Medications: Active Medications Acetaminophen (Tylenol) 325 mg PO Q4H PRN PRN Reason: PAIN SCALE 1 TO 2 Aspirin (Aspirin Chew) 81 mg PO DAILY [facility] Last Admin: 07/29/18 09:05 Dose: 81 mg Atorvastatin Calcium (Lipitor) 40 mg PO HS [facility] Last Admin: 07/28/18 21:27 Dose: 40 mg Atropine Sulfate (Atropine Inj) 0.5 mg IV.PUSH UNSCH PRN PRN Reason: VAGAL REPONSE Furosemide (Lasix) 40 mg PO DAILY [facility] Last Admin: 07/29/18 09:06 Dose: 40 mg Isosorbide Mononitrate (Imdur) 30 mg PO DAILY@0700 [facility] Last Admin: 07/29/18 11:50 Dose: 30 mg Lidocaine HCl (Xylocaine 2% Jelly) 5 ml TOPICAL PRN PRN PRN Reason: For male lamar catheter insert Lisinopril (Prinivil) 5 mg PO DAILY [facility] Last Admin: 07/29/18 09:05 Dose: 5 mg Lorazepam (Ativan) 0.5 mg PO HS [facility] Magnesium Oxide (Mag-Ox) 400 mg PO BID [facility] Last Admin: 07/29/18 11:50 Dose: 400 mg Metoclopramide HCl (Reglan Inj) 10 mg IV.PUSH Q4H PRN; Protocol PRN Reason: NAUSEA Metoprolol Tartrate (Lopressor) 50 mg PO BID [facility] Last Admin: 07/29/18 09:06 Dose: 50 mg Oxycodone/Acetaminophen (Percocet 10/325 Mg) 1 tab PO Q4H PRN PRN Reason: PAIN SCALE 6 TO 10 Oxycodone/Acetaminophen (Percocet 5/325 Mg) 1 tab PO Q4H PRN PRN Reason: PAIN SCALE 3 TO 5 Sodium Chloride (Ns Flush) 2 ml IV.FLUSH BID [facility] Last Admin: 07/29/18 09:06 Dose: 2 ml Sodium Chloride (Ns Flush) 2 ml IV.FLUSH PRN PRN PRN Reason: FLUSH AFTER USING IV ACCESS Ticagrelor (Brilinta) 90 mg PO BID [facility] Last Admin: 07/29/18 09:05 Dose: 90 mg Physical Exam Vital signs: Last Vital Signs Temp 98.1 F 07/29/18 12:00 Pulse 79 07/29/18 13:33 Resp 18 07/29/18 12:00 BP 93/65 L 07/29/18 12:00 Pulse Ox 95 07/29/18 12:00 Narrative: GENERAL: NAD, AAOx3 SKIN: Warm and dry. HEENT: Atraumatic. Normocephalic. Pupils equal and round. No scleral icterus. No injection or drainage. No nasal bleeding or discharge. Mucous membranes pink and moist. NECK: Trachea midline. No JVD. CARDIO: Regular rate and rhythm. RESP: No accessory muscle use. Clear to auscultation. Breath sounds equal bilaterally. ABD: +BS, soft, non-tender, nondistended. Hepatic and splenic margins not palpable. EXT: Extremities without clubbing, cyanosis, or edema. No obvious deformities. NEURO: Awake and alert. No obvious cranial nerve deficits. Motor grossly within normal limits. Five out of 5 muscle strength in the arms and legs. Normal speech. PSYCH: Appropriate mood and affect; insight and judgment normal. Results Labs CBC & Chem 7: 07/29/18 04:53 07/29/18 04:53 Imaging Chest X-Ray 07/28/18 10:57 CONCLUSION: No acute disease Assessment and Plan Assessment (1) ST elevation (STEMI) myocardial infarction: Code(s): I21.3 - ST elevation (STEMI) myocardial infarction of unspecified site Status: Acute Plan STEMI s/p PCI VT on telemetry - Pt is a 62 y/o male with hx of ablation for SVT in 2013 and hyperlipidemia. Pt presented to the ED at [facility] 07[place]28[place]18 with complaints of chest pain that began around 9am that morning. The pain was located across his chest, described as a pressure like sensation that was constant. He did report associated nausea , diaphoresis, and generalized weakness. STEMI alert was called in the emergency department and pt underwent emergent catheterization on 07/28/18 and had PCI with ORA in the LAD (cath report unavailable currently). - Co-management with Cardiology - Pt was started Brilinita 90mg BID, ASA 81mg daily, BB/AC/Statin - Overnight pt had noted episodes of runs of VT on telemetry with the longest run being about 20 beats. - The Metoprolol was increased to 50mg BID and Imdur 30mg daily on 07/29/18 - Monitor on telemetry - 2D echo (07/28/18): - Technically very difficult study making assessment of left ventricular function and wall motion suboptimal. - Normal left ventricular size. Wall thickness is normal. - Left ventricular systolic function may be mildly reduced with an estimated ejection fraction in the range of 40-45%. - Possible small area of distal septal and apical hypokinesis. - No definite significant valvular abnormalities - Pt was also started on Lasix 40mg daily - Monitor BP as it has been running low this morning and afternoon with medication changes - Supportive care - DVT prophylaxis with SCDs _ (1) ST elevation (STEMI) myocardial infarction Qualifiers: Involved coronary artery:
--- NOTE | 2018-07-29 13:41 | ECG ---
Date Performed: 07/29/2018 Time Performed: 06:31:22 PTAGE: 62 years EKG: Sinus rhythm Left axis deviation RBBB with left anterior fascicular block Inferior infarct - age undetermined Pos sible anteroseptal infarct - age undetermined Lateral T wave changes may be due to myocardial ischemi a Abnormal ECG Since the PREVIOUS TRACING , no significant change noted PREVIOUS TRACIN07/29/2018 00.41 DOCTOR: Parag Pina Interpretating Date/Time 07/29/2018 13:39:25
--- NOTE | 2018-07-29 13:57 | ECG ---
Date Performed: 07/28/2018 Time Performed: 10:52:33 PTAGE: 62 years EKG: Sinus rhythm WITH FREQUENT VENTRICULAR PREMATURE COMPLEXES RIGHT BUNDLE BRANCH BLOCK ANTERIOR MYOCARDIAL INFARCTI ON INFERIOR MYOCARDIAL INFARCTION ST ELEVATION, CONSIDER SEPTAL INJURY ACUTE IL Sinus arrhythmi a is significantly more prominent since prior tracing. There is also marked ST elevation in the anter ior precordium suggestive of an acute IL. Clinical correlation is strongly recommended PREVIOUS TRACING : 03/20/14 DOCTOR: Parag Pina Interpretating Date/Time 07/29/2018 13:51:13
--- NOTE | 2018-07-29 13:58 | ECG ---
Date Performed: 07/28/2018 Time Performed: 12:26:06 PTAGE: 62 years EKG: Sinus rhythm . Right bundle branch block ANTEROSEPTAL INFARCT - POSSIBLY ACUTE Continued evolution of ante rior IL. Clinical correlation is recommended Abnormal ECG PREVIOUS TRACING : 07/28/2018 10.52 DOCTOR: Parag Pina Interpretating Date/Time 07/29/2018 13:51:40
--- NOTE | 2018-07-29 13:58 | ECG ---
Date Performed: 07/28/2018 Time Performed: 16:49:52 PTAGE: 62 years EKG: Sinus rhythm . Left axis deviation RBBB with left anterior fascicular block Inferior infarct - age undetermined Po ssible anteroseptal infarct - age undetermined Continued evolution of inferior infarct Clinical corre lation is recommended Abnormal ECG PREVIOUS TRACING : 07/28/18 DOCTOR: Parag Pina Interpretating Date/Time 07/29/2018 13:52:29
--- NOTE | 2018-07-29 13:59 | ECG ---
Date Performed: 07/29/2018 Time Performed: 00:41:28 PTAGE: 62 years EKG: Sinus rhythm with PVC(s) Left axis deviation RBBB with left anterior fascicular block Inferior infarct - age unde termined Possible anteroseptal infarct - age undetermined Continued evolution of inferior infarct Abn ormal ECG PREVIOUS TRACING : 07/28/2018 16.49 DOCTOR: Parag Pina Interpretating Date/Time 07/29/2018 13:52:50
[2018-07-29] MEDS: LORazepam 0.5 MG Tablet PO SCH (20:35)
[2018-07-30] MEDS: Isosorbide Mononitrate 30 MG ER 24HR Tablet (Imdur) PO SCH ×2 (06:18→16:14)
[2018-07-30] MEDS ORDERED: Isosorbide Mononitrate 30 MG ER 24HR Tablet (Imdur) PO SCH (07:00)
[2018-07-30] MEDS: Furosemide 40 MG Tablet PO SCH (09:51)
[2018-07-30] MEDS: Magnesium Oxide 400 MG Tablet PO SCH ×2 (09:51→20:08)
[2018-07-30] MEDS: Metoprolol Tartrate 50 MG Tablet PO SCH (11:24)
[2018-07-30] MEDS: Lisinopril 5 MG Tablet PO SCH (12:09)
--- NOTE | 2018-07-30 12:48 | ECG ---
Date Performed: 07/29/2018 Time Performed: 08:57:52 PTAGE: 62 years EKG: Sinus rhythm with intermittent conduction defect Left axis deviation RBBB with left anterior fascicular block Ext ensive infarct - age undetermined Since the previous tracing, no significant change noted Abnormal EC G PREVIOUS TRACING : 07/29/2018 06.31 DOCTOR: Parag Pina Interpretating Date/Time 07/30/2018 12:47:53
--- NOTE | 2018-07-30 14:14 | P.PNIM ---
Subjective Interval history: Patient having hypotension resting in bed offers no new concerns/complaints Physical Exam Vital signs: Last Vital Signs Temp 98.4 F 07/30/18 12:00 Pulse 90 07/30/18 13:00 Resp 16 07/30/18 12:00 BP 122/80 07/30/18 12:00 Pulse Ox 95 07/30/18 12:00 Narrative: GENERAL: NAD, AAOx3 SKIN: Warm and dry. HEENT: Atraumatic. Normocephalic. Pupils equal and round. No scleral icterus. No injection or drainage. No nasal bleeding or discharge. Mucous membranes pink and moist. NECK: Trachea midline. No JVD. CARDIO: Regular rate and rhythm. RESP: No accessory muscle use. Clear to auscultation. Breath sounds equal bilaterally. ABD: +BS, soft, non-tender, nondistended. Hepatic and splenic margins not palpable. EXT: Extremities without clubbing, cyanosis, or edema. No obvious deformities. NEURO: Awake and alert. No obvious cranial nerve deficits. Motor grossly within normal limits. Five out of 5 muscle strength in the arms and legs. Normal speech. PSYCH: Appropriate mood and affect; insight and judgment normal. Results Labs CBC & Chem 7: 07/29/18 04:53 07/29/18 04:53 Assessment and Plan Assessment (1) ST elevation (STEMI) myocardial infarction: Code(s): I21.3 - ST elevation (STEMI) myocardial infarction of unspecified site Status: Acute Plan STEMI s/p PCI VT on telemetry - Pt is a 62 y/o male with hx of ablation for SVT in 2013 and hyperlipidemia. [place] [facility] [place] with complaints of chest pain that began around 9am that morning. The pain was located across his chest, described as a pressure like sensation that was constant. He did report associated nausea , diaphoresis, and generalized weakness. STEMI alert was called in the emergency department and pt underwent emergent catheterization on 07/28/18 and had PCI with ORA in the LAD (cath report unavailable currently). - Co-management with Cardiology - Pt was started Brilinita 90mg BID, ASA 81mg daily, BB/AC/Statin - Overnight pt had noted episodes of runs of VT on telemetry with the longest run being about 20 beats. - The Metoprolol was increased to 50mg BID and Imdur 30mg daily on 07/29/18 - Monitor on telemetry - 2D echo (07/28/18): - Technically very difficult study making assessment of left ventricular function and wall motion suboptimal. - Normal left ventricular size. Wall thickness is normal. - Left ventricular systolic function may be mildly reduced with an estimated ejection fraction in the range of 40-45%. - Possible small area of distal septal and apical hypokinesis. - No definite significant valvular abnormalities - Pt was also started on Lasix 40mg daily - Monitor BP as it has been hypotensive with medication changes - will decrease Lasix to 20 mg PO daily, decrease metoprolol to 25 mg PO BID and decrease isosorbide to 15 mg PO daily and DC lisinopril - continue to monitor BP overnight - Supportive care - DVT prophylaxis with SCDs Possible DC in AM if patient's BP remains stable and no further episodes of VT _ (1) ST elevation (STEMI) myocardial infarction Qualifiers: Involved coronary artery:
[2018-07-30] MEDS: Furosemide 20 MG Tablet PO SCH (16:14)
[2018-07-30] MEDS: Metoprolol Tartrate 25 MG Tablet PO SCH ×2 (16:14→20:12)
--- NOTE | 2018-07-30 16:14 | P.PNCA ---
Subjective Interval history: Resting comfortable, no chest pain, no arrhythmia. Medications and Allergies Active Medications: Active Medications Acetaminophen (Tylenol) 325 mg PO Q4H PRN PRN Reason: PAIN SCALE 1 TO 2 Aspirin (Aspirin Chew) 81 mg PO DAILY [facility] Last Admin: 07/30/18 09:51 Dose: 81 mg Atorvastatin Calcium (Lipitor) 40 mg PO HS [facility] Last Admin: 07/29/18 20:35 Dose: 40 mg Atropine Sulfate (Atropine Inj) 0.5 mg IV.PUSH UNSCH PRN PRN Reason: VAGAL REPONSE Furosemide (Lasix) 20 mg PO DAILY [facility] Isosorbide Mononitrate (Imdur) 15 mg PO DAILY@0700 [facility] Lidocaine HCl (Xylocaine 2% Jelly) 5 ml TOPICAL PRN PRN PRN Reason: For male lamar catheter insert Lorazepam (Ativan) 0.5 mg PO HS [facility] Last Admin: 07/29/18 20:35 Dose: 0.5 mg Magnesium Oxide (Mag-Ox) 400 mg PO BID [facility] Last Admin: 07/30/18 09:51 Dose: 400 mg Metoclopramide HCl (Reglan Inj) 10 mg IV.PUSH Q4H PRN; Protocol PRN Reason: NAUSEA Metoprolol Tartrate (Lopressor) 25 mg PO BID [facility] Oxycodone/Acetaminophen (Percocet 10/325 Mg) 1 tab PO Q4H PRN PRN Reason: PAIN SCALE 6 TO 10 Oxycodone/Acetaminophen (Percocet 5/325 Mg) 1 tab PO Q4H PRN PRN Reason: PAIN SCALE 3 TO 5 Sodium Chloride (Ns Flush) 2 ml IV.FLUSH BID [facility] Last Admin: 07/30/18 09:51 Dose: 2 ml Sodium Chloride (Ns Flush) 2 ml IV.FLUSH PRN PRN PRN Reason: FLUSH AFTER USING IV ACCESS Ticagrelor (Brilinta) 90 mg PO BID [facility] Last Admin: 07/30/18 09:51 Dose: 90 mg Allergies Allergy/AdvReac Type Severity Reaction Status Date / Time No Known Allergies Allergy Verified 07/28/18 10:36 Home Medications Medication Instructions Recorded Confirmed Type omega-3 fatty acids [Fish Oil 1,000 mg PO DAILY 07/28/18 07/28/18 History Concentrate] Physical Exam Vital signs: Vital Signs 07/29/18 17:00 07/29/18 17:17 07/29/18 19:00 Temperature Pulse Rate 90 89 98 H Respiratory Rate Blood Pressure Pulse Oximetry 07/29/18 20:00 07/29/18 20:52 07/29/18 21:00 Temperature 98 F Pulse Rate 90 89 Respiratory Rate 20 Blood Pressure 101/73 Pulse Oximetry 95 96 07/29/18 22:00 07/29/18 23:00 07/30/18 00:00 Temperature 98.2 F Pulse Rate 92 H 87 85 Respiratory Rate 18 Blood Pressure 85/56 L Pulse Oximetry 96 07/30/18 01:00 07/30/18 02:00 07/30/18 03:00 Temperature Pulse Rate 87 88 84 Respiratory Rate Blood Pressure Pulse Oximetry 07/30/18 04:00 07/30/18 05:00 07/30/18 06:00 Temperature 98.1 F Pulse Rate 77 82 79 Respiratory Rate 18 Blood Pressure 94/49 L Pulse Oximetry 94 L 07/30/18 07:00 07/30/18 07:52 07/30/18 08:00 Temperature 98.4 F Pulse Rate 71 81 96 H Respiratory Rate 16 Blood Pressure 101/65 Pulse Oximetry 95 98 07/30/18 09:00 07/30/18 09:50 07/30/18 10:00 Temperature Pulse Rate 86 86 Respiratory Rate Blood Pressure 98/62 L Pulse Oximetry 07/30/18 11:00 07/30/18 11:25 07/30/18 12:00 Temperature 98.4 F 98.4 F Pulse Rate 81 83 83 Respiratory Rate 16 16 Blood Pressure 122/80 122/80 Pulse Oximetry 95 95 07/30/18 13:00 07/30/18 15:43 Temperature 97.8 F Pulse Rate 90 88 Respiratory Rate 16 Blood Pressure 112/79 Pulse Oximetry 99 Intake & Output 07/29/18 07/30/18 07/30/18 18:59 06:59 18:59 Intake Total 1270 / 1270 1480 / 1480 Output Total 1050 / 1050 800 / 800 Balance 220 / 220 680 / 680 Weight 112.5 kg Intake: IV 250 / 250 1000 / 1000 Nitroglycerin Drip Premix 50 mg 250 / 250 In 250 ml @ 5 MCG/MIN 1.5 mls/ hr IV.CONT TITRATE PRN Rx#: [id number] Oral 1020 / 1020 480 / 480 Output: Urine 1050 / 1050 800 / 800 Other: Date of Last Bowel Movement 07/29/18 07/27/18 # Bowel Movements 1 1 - Constitutional no acute distress - Routine HEENT Exam Head: Present: normocephalic Eye: Present: EOMI, conjunctivae pink - Routine Neck Exam Present: supple, full ROM, normal carotid upstroke. Absent: JVD, carotid bruit - Routine Respiratory Exam Present: CTA bilaterally - Routine Cardiovascular Exam Present: RRR, S1, S2, gallop, S3 - Routine Abdominal Exam Present: soft, normoactive bowel sounds - Routine Extremities Exam Present: full ROM, normal capillary refill. Absent: edema - Routine Skin Exam Present: dry, warm - Routine Neurological Exam Present: alert, oriented X3, CN II-XII intact - Routine Psychiatric Exam Present: normal affect Results 07/29/18 04:53 07/29/18 04:53 Cardiac Enzymes 07/29/18 Range/Units 04:53 CK-MB (CK-2) 240.3 H (0.5-3.6) ng/mL Lipids 07/29/18 Range/Units 04:53 Triglycerides 144 (42-150) mg/dL Cholesterol 214 H (120-200) mg/dL HDL Cholesterol 44.1 (40.0-60.0) mg/dL Cholesterol/HDL Ratio 4.85 Ratio CBC 07/29/18 Range/Units 04:53 WBC 15.7 H (4.0-11.0) th/mm3 RBC 5.42 (4.50-5.90) mil/mm3 Hgb 17.9 H (13.0-17.0) gm/dL Hct 50.5 (39.0-51.0) % Plt Count 251 (150-450) th/mm3 Neut # (Auto) 13.3 H (1.8-7.7) th/mm3 Lymph # (Auto) 1.1 (1.0-4.8) th/mm3 Jackson # (Auto) 1.2 H (0.0-0.9) th/mm3 Eos # (Auto) 0.0 (0.0-0.4) th/mm3 Baso # (Auto) 0.0 (0.0-0.2) th/mm3 Comprehensive Metabolic Panel 07/29/18 Range/Units 04:53 Sodium 137 (136-145) meq/L Potassium 4.0 (3.5-5.1) meq/L Chloride 104 (98-107) meq/L Carbon Dioxide 23.9 (21.0-32.0) meq/L BUN 16 (7-18) mg/dL Creatinine 0.99 (0.60-1.30) mg/dL Calcium 8.4 L (8.5-10.1) mg/dL Intake and Output 07/30/18 07/30/18 07/30/18 06:59 14:59 22:59 Intake Total 1480 / 1480 Output Total 800 / 800 Balance 680 / 680 Intake: IV 1000 / 1000 Oral 480 / 480 Output: Urine 800 / 800 Other: Date of Last Bowel Movement 07/27/18 # Bowel Movements 1 Weight 112.5 kg Assessment and Plan - Plan 62 yo man, s/p anterior STEMI 07/28/18 1. Anterior STEMI, 100% proximal LAD, stented with a ORA 4x15 mm Leonel. No recurrent arrhythmia. cont Brilinta, asa 81mg, atorvastatin 40mg Lisinopril discontinued and Metoprolol reduced dose due to low BP overnight OK to MI home from cardiology standpoint tomorrow, if no further event overnight Follow up with Dr. Scott in 1 week 2. Mild LVSD, LVEF 40-45% 06/2018. Likely due post AMI acute myocardial stunning. Continue Metoprolol Consider ARB or ACEi or Entresto if BP can tolerate..
[2018-07-30] MEDS: LORazepam 0.5 MG Tablet PO SCH (20:07)
[2018-07-31] MEDS: Isosorbide Mononitrate 30 MG ER 24HR Tablet (Imdur) PO SCH (06:08)
--- NOTE | 2018-07-31 08:48 | P.PNIM ---
Subjective Interval history: Pt feeling well today Anxious for discharge No new episodes of VT on telemetry Physical Exam Vital signs: Last Vital Signs Temp 98.2 F 07/31/18 07:35 Pulse 90 07/31/18 07:35 Resp 16 07/31/18 07:35 BP 102/72 07/31/18 07:35 Pulse Ox 94 L 07/31/18 07:35 Narrative: GENERAL: NAD, AAOx3 SKIN: Warm and dry. HEENT: Atraumatic. Normocephalic. Pupils equal and round. No scleral icterus. No injection or drainage. No nasal bleeding or discharge. Mucous membranes pink and moist. NECK: Trachea midline. No JVD. CARDIO: Regular rate and rhythm. RESP: No accessory muscle use. Clear to auscultation. Breath sounds equal bilaterally. ABD: +BS, soft, non-tender, nondistended. Hepatic and splenic margins not palpable. EXT: Extremities without clubbing, cyanosis, or edema. No obvious deformities. NEURO: Awake and alert. No obvious cranial nerve deficits. Motor grossly within normal limits. Five out of 5 muscle strength in the arms and legs. Normal speech. PSYCH: Appropriate mood and affect; insight and judgment normal. Results Labs CBC & Chem 7: 07/29/18 04:53 07/29/18 04:53 Assessment and Plan Plan STEMI s/p PCI VT on telemetry - Pt is a 62 y/o male with hx of ablation for SVT in 2013 and hyperlipidemia. Pt presented to the ED at [facility] on 07/28/18 with complaints of chest pain that began around 9am that morning. The pain was located across his chest, described as a pressure like sensation that was constant. He did report associated nausea , diaphoresis, and generalized weakness. STEMI alert was called in the emergency department and pt underwent emergent catheterization on 07/28/18 and had PCI with ORA in the LAD (cath report unavailable currently). - Co-management with Cardiology - Pt was started Brilinita 90mg BID, ASA 81mg daily, BB/AC/Statin - Overnight on 07/29 the pt had noted episodes of runs of VT on telemetry with the longest run being about 20 beats. - The Metoprolol was increased to 50mg BID and Imdur 30mg daily on 07/29/18 - Monitor on telemetry - 2D echo (07/28/18): - Technically very difficult study making assessment of left ventricular function and wall motion suboptimal. - Normal left ventricular size. Wall thickness is normal. - Left ventricular systolic function may be mildly reduced with an estimated ejection fraction in the range of 40-45%. - Possible small area of distal septal and apical hypokinesis. - No definite significant valvular abnormalities - Pt was also started on Lasix 40mg daily - Monitor BP as it has been hypotensive with medication changes - Pts BP has remained stable on Lasix to 20 mg PO daily, metoprolol to 25 mg PO BID and Isosorbide to 15 mg PO daily and off the lisinopril - Pt will be discharged on these dosages of medications and will need to followup with Dr. Scott in 1 week. - Pt will need to monitor his BP at home and record readings to give to his [employer] at followup - His [facility] assigned PCP is Dr. Eric Rosales. He will need to establish with either Dr. Rosales or another [facility] PCP in the next 1-2 weeks.
[2018-07-31] MEDS: Magnesium Oxide 400 MG Tablet PO SCH (09:17)
[2018-07-31] MEDS: Furosemide 20 MG Tablet PO SCH (09:41)
[2018-07-31] MEDS: Metoprolol Tartrate 25 MG Tablet PO SCH (09:42)
--- NOTE | 2018-08-04 11:47 | MA ---
cc: Joseph Scott MD DATE: 07/28/2018 PROCEDURES PERFORMED: 1. Fluoroscopy with interpretation. 2. Coronary angiography. 3. Thrombectomy of the left anterior descending coronary artery. 4. Percutaneous endovascular stenting with drug-eluting stent to the proximal left anterior descending coronary artery. METHODS: Risks, benefits and alternatives discussed with the patient, the patient understood and consented to the procedure. The patient was brought to catheterization lab and placed on the catheterization table. The right wrist was prepped and draped in sterile fashion. The right wrist was anesthetized with 2% lidocaine. The right radial artery was cannulated and a 6-Burkinan 7 cm sheath was placed without difficulty. CORONARY ANGIOGRAPHY: 1. Left main coronary artery is large caliber size with only mild luminal irregularities. 2. Left anterior descending coronary artery is thrombotically occluded proximally. The distal vessel is not visualized. 3. The ramus intermedius branch is very large caliber with mild luminal irregularities. Remainder of the circumflex is small and only gives rise to a sinal killian branch. 4. Right coronary artery is technically a dominant vessel, although small caliber size. The right coronary has minor luminal irregularities. PERCUTANEOUS INTERVENTION: Left coronary circulation selectively engaged with a 6-Burkinan AL3 guide catheter. A 0.014 180 cm [employer] Run[employer] wire was navigated down the distal left anterior descending coronary artery. A 3.0 x 12 mm Euphora balloon was then advanced into the proximal left anterior descending coronary artery and deployed. Repeat angiography showed now gnosticist of OLGA LIDIA 2 flow. An Lewis catheter was then advanced down the left anterior descending coronary artery. Heparin and Cangrelor was administered through the entire procedure to maintain appropriate anticoagulation. A 4.0 x 18 mm Resolute [place] stent was then deployed in the proximal left anterior descending coronary artery. Repeat angiography showed gnosticist of OLGA LIDIA 3 flow, no residual stenosis. CONCLUSIONS: 1. Acute thrombotically-occluded proximal left anterior descending coronary artery. 2. Successful percutaneous coronary intervention with drug-eluting stent to the proximal left anterior descending coronary artery. PLAN: The patient will be continued on guideline directed medical therapy. We will followup with a transthoracic echocardiogram. MD YIMI Davidson/rs/hira , 10:58 AM , 11:05 AM
== END 2018-07-31 12:16 | disposition home or self-care (01) ==
LOC: NEPC 10:24 → NEDA 11:05 → HCIS 12:19
PROVIDERS: ADMIT Internal Medicine; ATTEND Internal Medicine